=== PATIENT | male | born 2000 | race Caucasian/White ===

== ENCOUNTER 2019-10-11 00:30 | Emergency (ER) | payer OTHER ==
[~2019-10-11] VITALS: Ht 177.8 cm; Wt 137.9 kg
[2019-10-11 00:37] VITALS: Ht 177.8 cm; Wt 137.9 kg
[2019-10-11 02:14] VITALS: BP 159/95
== END 2019-10-11 02:14 | disposition home or self-care (01) ==
LOC: ED 00:30
DX: R07.89 Other chest pain (principal)
CPT/HCPCS: J1885; Q0092